=== PATIENT | female | born 1950 | race Two or more races ===

== ENCOUNTER 2017-12-03 08:48 | Day surgery (SDC) | payer OTHER ==
[~2017-12-03 08:48] MED LIST: ADVIL100 MG PO
== END 2017-12-03 16:55 | disposition home or self-care (01) ==
LOC: CIR.AMB 08:48
DX: M75.21 Bicipital tendinitis, right shoulder (principal); M75.121 Complete rotator cuff tear or rupture of right shoulder, not specified as traumatic; M19.011 Primary osteoarthritis, right shoulder